=== PATIENT | female | born 1975 | race Caucasian/White ===

== ENCOUNTER 2021-04-05 10:24 | Emergency (ER) | payer OTHER ==
--- OUTSIDE RECORDS SUMMARY | 2021-04-05 10:26 | XMS REPORT | Continuity of Care Document ---
:1975 Author Organization [facility] t Address [address] [place] [address] Care Team Providers Name Role Phone RENITA DEJESUS Attending Clinician Unavailable RADHA COURTNEY Attending Clinician Unavailable SCOTT Attending Clinician Unavailable RENITA DEJESUS Admitting Clinician Unavailable RADHA COURTNEY Admitting Clinician Unavailable Problems This patient has no known problems. Allergies, Adverse Reactions, Alerts This patient has no known allergies or adverse reactions. Medications This patient has no known medications. Procedures This patient has no known procedures. Encounters Start End Encounter Admission Attending Care Care Encounter Source Date/Time Date/Time Type Type Clinicians Facility Department ID 2021-04-01 2021-04-01 Outpatient [facility] [id number] 05:24:00 19:00:00 HERVE lopez [facility] 2021-03-20 2021-03-21 Inpatient [facility] [id number] 10:58:00 17:00:00 C[place] [facility]opez [facility] 2021-01-06 2021-01-06 Outpatient [facility] [id number] 09:33:00 09:33:00 CARRINGTON lopez [facility] 2019-12-31 2019-12-31 [id number] 00:[facility]:00 00:00:00 SHAHIDA [id number] [facility] Results This patient has no known results.
--- NOTE | 2021-04-05 12:46 | ER ---
Nurse's Notes [facility] Name: Lorraine Fernandez Age: 45 yrs Sex: Female : 1975 Arrival Date: 04/05/2021 Time: 10:25 Bed Waiting Private MD: Diagnosis: Presentation: 04/05 10:47 Chief complaint: Patient states: Last night legs and right arm started jerking, took 2 jl7 gabapentin, 1 tramadol and 2 Benadryl, woke this morning and felt ok. Then was just sitting there and my whole body went numb and when I stand my legs shake really, really bad. My chest will get real tight for 10 minutes then relax and then get real tight again. Coronavirus screen: At this time, the client does not indicate any symptoms associated with coronavirus-19. Ebola Screen: No symptoms or risks identified at this time. Initial Sepsis Screen: Does the patient meet any 2 criteria? No. Patient's initial sepsis screen is negative. Does the patient have a suspected source of infection? No. Patient's initial sepsis screen is negative. Risk Assessment: Do you want to hurt yourself or someone else? Patient reports no desire to harm self or others. Onset of symptoms was April 05, 2021 at 07:30. Care prior to arrival: None. 10:47 Method Of Arrival: Wheelchair jl7 10:47 Acuity: WHIT 3 jl7 Triage Assessment: 10:50 General: Appears in no apparent distress. uncomfortable, Behavior is calm, cooperative, jl7 appropriate for age. Pain: Denies pain. Cardiovascular: Patient's skin is warm and dry. 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 - Social history:: Smoking status: Patient reports the use of cigarette tobacco products, smokes one-half pack cigarettes per day. Vital Signs: 10:47 BP 125 / 92; Pulse 73; Resp 17; Temp 98.5; Pulse Ox 100% ; Weight 78.02 kg; Height 5 jl7 ft. 3 in. (160.02 cm); Pain 0/10; 10:47 Body Mass Index 30.47 (78.02 kg, 160.02 cm) 7 ED Course: 10:25 Patient arrived in ED. am2 10:50 Triage completed. jl7 10:50 Arm band placed on right wrist. jl7 12:45 No provider procedures requiring assistance completed. ss Administered Medications: No medications were administered Outcome: 12:45 Eloped from waiting room, before seeing physician ss 12:45 Patient left the ED. Signatures: Ivory Bernard RN RN ss Mitchell Vazquez RN RN jl7 Paula Hernandez am2
[2021-04-05 13:06] VITALS: BP 125/92; TEMP 98.5; O2SAT 100
== END 2021-04-05 12:45 | disposition left against medical advice (07) ==
LOC: ER 10:24
DX: Z53.21 Procedure and treatment not carried out due to patient leaving prior to being seen by health care provider (principal)
CPT/HCPCS: 93005; 99281